=== PATIENT | female | born 1995 | race Caucasian/White ===

== ENCOUNTER 2017-07-02 17:32 | Inpatient (IN) ==
[2017-07-02 18:05] LABS: URINE SOURCE VOIDED
[2017-07-02 18:10] LABS: BILIRUBIN URINE NEGATIVE (NEGATIVE); BLOOD URINE NEGATIVE (NEGATIVE); CLARITY CLEAR (CLEAR); COLOR YELLOW; GLUCOSE URINE NEGATIVE (NEGATIVE); LEUKOCYTES URINE TRACE (NEGATIVE); NITRITE URINE NEGATIVE (NEGATIVE); PH URINE 6.5; PROTEIN URINE NEGATIVE (NEGATIVE); UROBILINOGEN URINE NORMAL
[2017-07-02] MEDS ORDERED: LR 1,000 ML IV SCH ×2 (18:22→18:45)
[2017-07-02] MEDS ORDERED: PEPCID PO ONE (18:45)
[2017-07-02] MEDS ORDERED: REGLAN PO ONE (18:45)
[2017-07-02] MEDS ORDERED: KEFZOL 1 GM/D5W 1 GM/50 ML IVPB IV ONE (18:50)
[2017-07-02] MEDS ORDERED: BICITRA PO ONE (18:53)
[2017-07-02] MEDS ORDERED: PEPCID IV ONE (18:53)
[2017-07-02] MEDS ORDERED: SODIUM CHLORIDE 0.9% INJ ONE (18:53)
[2017-07-02 19:05] LABS: MANUAL DIFF NEEDED? NO
[2017-07-02 19:16] LABS: BASO% 0.1 % (0.0-0.8); EOS# 0.16 X1000 (0.0-0.7); EOS% 1.2 % (0.0-10.0); HEMATOCRIT 36.5 % (37.0-47.0); HEMOGLOBIN 12.1 g/dL (12.0-16.0); IMM GRAN# 0.06 X1000 (0.0-0.04); IMM GRAN% 0.4 % (0.0-0.5); LYMPH# 2.51 X1000 (1.2-3.4); LYMPH% 18.2 % (20.5-51.1); MCH 27.4 PG (27-31); MCHC 33.2 g/dL (33-37); MCV 82.8 FL (81-99); MONO# 0.79 X1000 (0.11-0.59); MONO% 5.7 % (1.7-9.3); MPV 10.7 FL (7.4-10.4); NEUT% 74.4 % (42.2-75.2); PLT 236 X1000 (130-400); RBC 4.41 XMIL (4.2-5.4)
[2017-07-02] MEDS ORDERED: DULCOLAX PR PRN (19:35)
[2017-07-02] MEDS ORDERED: PITOCIN IM PRN (19:35)
[2017-07-02] MEDS ORDERED: AMBIEN PO PRN (19:35)
[2017-07-02] MEDS ORDERED: HYDROXYZINE IM PRN (19:35)
[2017-07-02] MEDS ORDERED: MYLICON PO PRN (19:35)
[2017-07-02] MEDS ORDERED: BOOSTRIX VACCINE IM ONE (19:35)
[2017-07-02] MEDS ORDERED: PHENERGAN IM PRN (19:35)
[2017-07-02] MEDS ORDERED: HYDROXYZINE PO PRN (19:35)
[2017-07-02] MEDS ORDERED: DEMEROL PO PRN ×2 (19:35)
[2017-07-02] MEDS ORDERED: PITOCIN 20 UNITS/LR 20 UNITS/1,000 ML IV.SOLN IV ONE (19:35)
[2017-07-02] MEDS ORDERED: PERCOCET-5 PO PRN (19:35)
[2017-07-02] MEDS ORDERED: M-M-R II VACCINE SUBQ ONE (19:35)
[2017-07-02] MEDS ORDERED: DEMEROL IM PRN (19:35)
[2017-07-02 19:42] LABS: UR AMPHETAMINES QUAL NONE DETECTED (NONE DETECT); UR BARBITUATES QUAL NONE DETECTED (NONE DETECT); UR BENZODIAZEPIN QUAL NONE DETECTED (NONE DETECT); UR CANNABINOIDS QUAL NONE DETECTED (NONE DETECT); UR COCAINE QUAL NONE DETECTED (NONE DETECT); UR MDMA QUAL NONE DETECTED (NONE DETECT); UR METHADONE QUAL NONE DETECTED (NONE DETECT); UR METHAMPHETAMINE QUAL NONE DETECTED (NONE DETECT); UR OPIATES QUAL NONE DETECTED (NONE DETECT); UR OXYCODONE QUAL NONE DETECTED (NONE DETECT); UR PCP QUAL NONE DETECTED (NONE DETECT); UR TCA QUAL NONE DETECTED (NONE DETECT)
[2017-07-02] MEDS ORDERED: DURAMORPH ONE (19:42)
[2017-07-02] MEDS ORDERED: PITOCIN 10 UNITS/LR 10 UNIT/1,000 ML IV.SOLN IV SCH (19:45)
[2017-07-02] MEDS ORDERED: PITOCIN ONE ×2 (20:18)
[2017-07-02] MEDS ORDERED: ZOFRAN ONE (20:18)
[2017-07-02] MEDS ORDERED: DECADRON ONE (20:19)
--- NOTE | 2017-07-02 20:35 | HISTORY AND PHYSICAL ---
HISTORY: The patient is a 22-year-old female, 2, para 1-0-0-1, with an EDC of 07/11/2017. She comes in at this time with contractions every 1-2 minutes which are palpating very hard, making her very uncomfortable. She is scheduled for repeat section in 2 days but, because of her consistent contractions, she is admitted at this time for repeat section and tubal ligation. She also desires tubal ligation and understands this procedure is permanent with a 1:200 failure rate. PAST MEDICAL HISTORY: section. MEDICATIONS: vitamins. ALLERGIES: Codeine. PHYSICAL EXAMINATION: GENERAL: Well-developed female. HEENT: Benign. NECK: Supple. LUNGS: Clear. CARDIOVASCULAR: Regular rate and rhythm. ABDOMEN: Soft and nontender. EXTREMITIES: Without clubbing, cyanosis or edema. ASSESSMENT AND PLAN: A 22-year-old female with term intrauterine , previous section, admitted at this time for repeat section and tubal ligation. cc: Adam Huang MD
[2017-07-02] MEDS: MYLICON PO SCH (21:49)
[2017-07-02] MEDS: PERICOLACE PO SCH (21:49)
[2017-07-02] MEDS: TORADOL IV SCH (21:59)
[2017-07-03] MEDS: TORADOL IV SCH ×4 (04:11→23:11)
[2017-07-03 06:19] LABS: HEMATOCRIT 34.8 % (37.0-47.0); HEMOGLOBIN 11.1 g/dL (12.0-16.0); MCH 26.5 PG (27-31); MCHC 31.9 g/dL (33-37); MCV 83.1 FL (81-99); MPV 11.1 FL (7.4-10.4); RBC 4.19 XMIL (4.2-5.4)
[2017-07-03] MEDS: MYLICON PO SCH ×4 (09:47→20:30)
--- NOTE | 2017-07-03 10:30 | OPERATIVE NOTE ---
PROCEDURE DATE : 07/02/2017 SURGEON: Adam Huang MD MANAGER FINANCIAL: RN PREOPERATIVE DIAGNOSES: 1. Term intrauterine . 2. Previous section. 3. Desires permanent sterilization. 4. Labor. POSTOPERATIVE DIAGNOSES: 1. Term intrauterine . 2. Previous section. 3. Desires permanent sterilization. 4. Labor. PROCEDURES: 1. Repeat low transverse section. 2. Bilateral tubal ligation. ANESTHESIA: Spinal by Jah Ardon MD FINDINGS: The patient had a male born, weight 8 pounds 2 ounces, Apgars were 8 and 9. The patient had light meconium stained fluid. DESCRIPTION OF OPERATION: The patient was taken to the operating room, given spinal anesthesia and Ancef IV. Terry catheter in her bladder. She was prepped and draped in a sterile fashion. Pump hose and stockings were placed. We made a Pfannenstiel skin incision, sharply dissected down to the fascia. Fascia dissected off the rectus muscle and the peritoneum was entered and dissected down. She had a balloon in lower segment. We made a low transverse incision with a scalpel. Light meconium fluid was noted upon entering the amniotic sac. Incision was carried laterally with blunt dissection and the was delivered using fundal pressure without any difficulties. Infant was briskly bulb suctioned at time of delivery. Cord blood was obtained. Placenta was removed. The uterus was externalized, cleaned with a clean lap. The incision was closed with #1 chromic in interlocking fashion. Good hemostasis was noted throughout. At this time, we picked up each tube in the mid portion, double ligated with 0 plain suture, cut and sent to Pathology for identification. The uterus was put back in its anatomic position. Good hemostasis noted throughout. After all pedicles were inspected and irrigation was done, the rectus muscle was closed a 0 chromic suture. Hemostasis was maintained with the Bovie. The fascia was closed with #1 Vicryl in interlocking fashion. Vicryl 3-0 was used subcuticularly after Bovie use for hemostasis and then the skin was closed with a 4-0 Biosyn. It was Steri- Stripped at this time and dressed and she was taken to the recovery room awake and in satisfactory condition. ESTIMATED BLOOD LOSS: 500 mL. COUNTS: Sponge count correct. cc: Adam Huang MD
[2017-07-03] MEDS ORDERED: LR 1,000 ML IV SCH (19:35)
[2017-07-03] MEDS: PERICOLACE PO SCH (20:30)
[2017-07-03] MEDS: PERCOCET-10 PO PRN (20:40)
[2017-07-03] MEDS ORDERED: NEOSPORIN OINTMENT PACKET TOP ONE (23:07)
[2017-07-04] MEDS: TORADOL IV SCH ×3 (06:51→18:04)
[2017-07-04] MEDS: MOTRIN PO PRN ×2 (06:54→22:15)
[2017-07-04] MEDS: PERCOCET-10 PO PRN ×2 (06:54→22:14)
[2017-07-04] MEDS: MYLICON PO SCH ×4 (08:15→20:20)
[2017-07-04] MEDS: PERICOLACE PO SCH (20:20)
[2017-07-05] MEDS: PERCOCET-10 PO PRN (03:56)
[2017-07-05 08:15] VITALS: BP 148/73
[2017-07-05] MEDS: MYLICON PO SCH (09:00)
--- NOTE | 2017-07-06 06:01 | DISCHARGE SUMMARY ---
ADMISSION DATE: 07/02/2017 DISCHARGE DATE: 07/05/2017 ADMITTING DIAGNOSES: 1. Term . 2. Labor. 3. Previous section, requesting repeat section. 4. Undesired fertility. PRINCIPAL FINAL DIAGNOSES: 1. Term . 2. Labor. 3. Previous section, requesting repeat section. 4. Undesired fertility. PRINCIPAL PROCEDURE: Repeat section and tubal sterilization. SUMMARY: Griselda Winters is a 22-year-old 2, para 1-0-0-1, at term gestation. She presented to Labor and Delivery having contractions. There were strong and regular. She had been scheduled for repeat section on the 04 of July; however, due to signs of labor she was admitted and underwent a repeat section by Dr. Huang. She delivered an 8 pound, 2 ounce male with Apgars of 8 at 1 minute, 9 at 5 minutes. There were no intraoperative complications. Following delivery, did she did very well. She remained afebrile. All vital signs were stable. She had an admission hemoglobin and hematocrit of 12.1/ 36.5. Discharge hemoglobin being 11.1 the of discharge. Cardiac and pulmonary examinations normal. Bowel and bladder function was normal. Her incision was clean and dry. She was having scant vaginal bleeding. Ms. Winters will be discharged today and we will see her back in the office in 1 week. Routine discharge instructions, activity limitations, and precautions were given. She is given prescriptions for Percocet 10. cc: MD Adam Baldwin MD [facility]
== END 2017-07-05 11:05 | disposition home or self-care (01) ==
LOC: P.OPLD 17:32 → P.LD 17:35 → P.WC 07-03 11:39
PROVIDERS: ADMIT Obstetrics & Gynecology; ATTEND Obstetrics & Gynecology